=== PATIENT | male | born 1950 | race Caucasian/White ===

== ENCOUNTER 2016-09-20 17:18 | Inpatient (IN) | payer OTHER ==
[~2016-09-20] VITALS: Ht 177.8 cm; Wt 108.4 kg
[2016-09-20 18:35] LABS: BASOPHIL COUNT 0.1 K/uL (0-0.1); EOSINOPHIL (%) 3.1 % (0-5); EOSINOPHIL COUNT 0.2 K/uL (0-0.3); HEMATOCRIT 42.2 % (38.0-50.0); IMMATURE GRANULOCYTE (%) 0.6 % (0.0-0.7); IMMATURE GRANULOCYTE COUNT 0.1 K/uL; INSTRUMENT ABS NEUTROPHIL CT 4.6 K/uL; LYMPHOCYTE COUNT 1.8 K/uL (1.0-2.8); MCH 27.6 PG (29.0-34.0); MCHC 32.2 G/DL (30.0-36.0); MCV 85.6 FL (86-99); MEAN PLAT.VOLUME 9.6 uM^3 (9.0-12.4); MONOCYTE (%) 13.3 % (3-12); NEUTROPHIL (%) 58.7 % (45-76); NEUTROPHIL COUNT 4.6 K/uL (1.8-6.4); PLATELET COUNT 230 K/uL (156-360); RBC DIS.WIDTH-CV 13.9 % (11.8-14.6); RBC DIS.WIDTH-SD 43.4 % (39-53); RED BLOOD COUNT 4.93 M/uL (4.00-5.50); WHITE BLOOD COUNT 7.8 K/uL (4.1-10.2)
[2016-09-20 18:45] LABS: CHLORIDE 103 mEq/L (99-109); POTASSIUM 4.1 mEq/L (3.7-5.4); PROTHROMBIN TIME 10.1 (9.2-11.2); SODIUM 141 mEq/L (136-147)
[2016-09-20 18:47] LABS: GLUCOSE 89 mg/dL (70-99)
[2016-09-20 18:48] LABS: ANION GAP 10 MEQ/L (2-14)
[2016-09-20 18:51] LABS: GFR ESTIMATE (CALCULATED) > 59 mL/min/
[2016-09-20 18:52] LABS: UREA NITROGEN (BUN) 11 mg/dL (9-23)
[2016-09-20 18:55] LABS: TROP-I INTERPRETATION NEGATIVE; TROPONIN-I < 0.01 ng/mL (0.0-0.30)
[2016-09-20] MEDS ORDERED: CHILD ASPIRIN81 M1 PO (20:42)
[2016-09-20] MEDS ORDERED: CLONAZEPAM1 MG PO (20:42)
[2016-09-20] MEDS ORDERED: DIVALPROEX DR PO (20:43)
[2016-09-20] MEDS ORDERED: DIVALPROEX SODIUM PO (20:45)
[2016-09-20] MEDS ORDERED: OLANZAPINE20 MG PO (20:45)
[2016-09-20] MEDS ORDERED: HYDROCHLOROTH12.5 M3 PO (20:45)
[2016-09-20] MEDS ORDERED: PRILOSEC20 MG PO (20:46)
[2016-09-20] MEDS ORDERED: SERTRALINE HCL50 MG PO (20:46)
[2016-09-20] MEDS ORDERED: SIMVASTATIN20 MG PO (20:46)
[2016-09-20] MEDS ORDERED: MECLIZINE HCL25 MG PO (20:47)
[2016-09-20] MEDS ORDERED: ONDANSETRON HCL4 MG PO (20:48)
[2016-09-20 23:20] VITALS: BP 131/85
[2016-09-20 23:24] LABS: HDL CHOLESTEROL 30 MG/DL (Desirable>=40); LDL CHOLESTEROL 121 mg/dL (Desirable<100); NON-HDL CHOLESTEROL 151 mg/dL (Desirable<160); TOTAL CHOLESTEROL 181 mg/dL (Desirable<200); TRIGLYCERIDES 150 MG/DL (Normal: <150)
[2016-09-21 03:52] VITALS: BP 135/84
[2016-09-21 06:21] LABS: ALKALINE PHOSPHATASE 71 IU/L (3-129); DIRECT BILIRUBIN 0.1 mg/dL (0.0-0.3); TOTAL BILIRUBIN 0.7 MG/DL (0.0-1.0)
[2016-09-21 07:37] VITALS: BP 116/79
[2016-09-21] MEDS ORDERED: SIMVASTATIN40 MG PO (15:09)
[2016-09-21 19:40] VITALS: BP 121/77
[2016-09-22 00:40] VITALS: BP 138/83
[2016-09-22 03:55] VITALS: BP 139/85
[2016-09-22 07:45] VITALS: BP 135/68
[2016-09-22 07:49] LABS: Estimated Average Glucose 140 mg/dL (70-123); HEMOGLOBIN A1c (GLYCOHEMOGLOB) 6.5 % HGB (Below 5.7)
[2016-09-22 12:07] VITALS: BP 135/68
== END 2016-09-22 14:43 | disposition home or self-care (01) | DRG 57 ==
LOC: EME 17:18 → 5SOUTH 21:36 → EDOF 21:36 → 5SOUTH 22:41
PROVIDERS: Emergency Medicine; Internal Medicine
DX: G31.09 Other frontotemporal neurocognitive disorder (principal); G31.01 Pick's disease; F02.80 Dementia in other diseases classified elsewhere, unspecified severity, without behavioral disturbance, psychotic disturbance, mood disturbance, and anxiety; I44.2 Atrioventricular block, complete; I44.0 Atrioventricular block, first degree; R00.1 Bradycardia, unspecified; E78.5 Hyperlipidemia, unspecified; G81.91 Hemiplegia, unspecified affecting right dominant side; R47.81 Slurred speech; R13.10 Dysphagia, unspecified; I10 Essential (primary) hypertension; F20.9 Schizophrenia, unspecified; F31.9 Bipolar disorder, unspecified
CPT/HCPCS: 70450; 70551; 71020; 80048; 80061; 80076; 83036; 84443; 84484; 85025; 85610; 92526 GN; 92610 GN; 93005; 93880; 99281; 99285; J1644; J7030